=== PATIENT | female | born 1955 | race African-American/Black ===

== ENCOUNTER 2024-01-10 16:13 | Emergency (ER) | payer OTHER ==
[2024-01-10 16:21] VITALS: RESP 18; TEMP 99.3; BMI 29.4
[2024-01-10] MEDS ORDERED: KCL 10 MEQ IVPB 10 MEQ/100 ML INFUS.BAG IVPB ONE ×4 (17:25→21:28)
[2024-01-10 17:30] LABS: BASO % 0.7 % (0-2.0); EOS % 4.5 % (0-4.5); HEMATOCRIT 41.4 % (32.4-45.2); HEMOGLOBIN 14.2 GM/dL (10.7-15.3); LYMPH % 40.2 % (8-40); MCH 30.3 pg (25.7-33.7); MCHC 34.2 g/dl (32.0-36.0); MEAN CELL VOLUME 88.7 fl (80-96); MEAN PLT VOLUME 7.7 fl (7.5-11.1); MONO % 15.7 % (3.8-10.2); NEUT % 38.9 % (42.8-82.8); PLATELET COUNT 245 10^3/uL (134-434); RBC 4.67 M/mm3 (3.60-5.2); RDW 13.6 % (11.6-15.6); WHITE BLOOD COUNT 5.5 K/mm3 (4.0-10.0)
[2024-01-10] MEDS: KCL 10 MEQ IVPB 10 MEQ/100 ML INFUS.BAG IVPB SCH ×3 (17:38→21:38)
[2024-01-10] MEDS: SODIUM CHLORIDE 0.9% 500 ML INFUS.BAG IV ONE (17:38)
[2024-01-10 17:39] LABS: CHLORIDE 99 mmol/L (98-107); SODIUM 139 mmol/L (136-145)
[2024-01-10 17:41] LABS: ALBUMIN 3.9 g/dl (3.4-5.0); CO2 33 mmol/L (21-32)
[2024-01-10 17:42] LABS: BLOOD UREA NITROGEN 15.2 mg/dL (7-18); GLUCOSE,RANDOM 109 mg/dL (74-106)
[2024-01-10 17:44] LABS: SGOT/AST 25 U/L (15-37); SGPT/ALT 23 U/L (13-61)
[2024-01-10 17:45] LABS: CREATININE 1.4 mg/dL (0.55-1.3); PHOSPHOROUS 2.8 mg/dL (2.5-4.9)
[2024-01-10 17:46] LABS: BILIRUBIN,TOTAL 0.4 mg/dL (0.2-1); TOT PROT 7.8 g/dl (6.4-8.2)
[2024-01-10 17:47] LABS: ALK PHOS 84 U/L (45-117)
[2024-01-10 17:48] LABS: ANION GAP 6 mmol/L (4-13); POTASSIUM 2.9 mmol/L (3.5-5.1)
[2024-01-10] MEDS ORDERED: POTASSIUM CHLORIDE TABS 20 MEQ TABLET.ER (FP) PO ONE (18:50)
[2024-01-10] MEDS: POTASSIUM CHLORIDE TABS 20 MEQ TABLET.ER (FP) PO ONE (18:57)
[2024-01-10] MEDS ORDERED: ALBUTEROL SO4 2.5/IPRATROPIUM 0.5 INH SOL 3 ML VIAL.NEB. NEB ONE (19:25)
[2024-01-10] MEDS: ALBUTEROL SO4 2.5/IPRATROPIUM 0.5 INH SOL 3 ML VIAL.NEB. NEB ONE (19:35)
[2024-01-10 19:40] VITALS: BP 124/81; PULSE 84
[2024-01-10 21:06] LABS: CHLORIDE 103 mmol/L (98-107); SODIUM 138 mmol/L (136-145)
[2024-01-10 21:07] LABS: CALCIUM 9.3 mg/dL (8.5-10.1)
[2024-01-10 21:08] LABS: BLOOD UREA NITROGEN 15.3 mg/dL (7-18); CO2 31 mmol/L (21-32); GLUCOSE,RANDOM 133 mg/dL (74-106)
[2024-01-10 21:11] LABS: CREATININE 1.3 mg/dL (0.55-1.3)
[2024-01-10 21:13] LABS: ANION GAP 4 mmol/L (4-13); POTASSIUM 2.7 mmol/L (3.5-5.1)
[2024-01-10] MEDS ORDERED: POTASSIUM CHLORIDE ORAL LIQUID 20 MEQ/15 ML ONE (21:28)
[2024-01-10] MEDS: POTASSIUM CHLORIDE ORAL LIQUID 20 MEQ/15 ML PO ONE (21:38)
[2024-01-11 00:17] LABS: POTASSIUM 4.3 mmol/L (3.5-5.1)
[2024-01-11 00:19] LABS: BLOOD UREA NITROGEN 11.7 mg/dL (7-18); CALCIUM 9.1 mg/dL (8.5-10.1)
[2024-01-11 00:23] LABS: CREATININE 1.1 mg/dL (0.55-1.3)
== END 2024-01-11 00:47 | disposition home or self-care (01) ==
LOC: JER 16:13
PROC: 3E0F7GC Introduction of Other Therapeutic Substance into Respiratory Tract, Via Natural or Artificial Opening (ICD-10-PCS; principal; 2024-01-10)
DX: E87.6 Hypokalemia (principal); R19.7 Diarrhea, unspecified; R51.9 Headache, unspecified
CPT/HCPCS: 36415; 80048; 80053; 83735; 84100; 84443; 85025; 93005; 93010; 99284-25